=== PATIENT | male | born 1995 | race African-American/Black ===

== ENCOUNTER 2017-05-28 21:11 | Emergency (ER) | payer MEDICAID ==
[~2017-05-28] VITALS: Ht 177.8 cm; Wt 75.9 kg
[2017-05-28 21:13] VITALS: BP 103/62
[2017-05-28] MEDS ORDERED: CEFTRIAXONE 250 MG IM ONE (22:00)
[2017-05-28] MEDS ORDERED: AZITHROMYCIN 500 MG TABLET PO ONE (22:00)
[2017-05-28] MEDS ORDERED: CEFTRIAXONE 250 MG ONE (22:25)
[2017-05-28] MEDS ORDERED: AZITHROMYCIN 500 MG TABLET ONE (22:25)
[2017-05-28] MEDS ORDERED: metroNIDAZOLE 500 MG TABLET PO STA (23:05)
[2017-05-28] MEDS ORDERED: metroNIDAZOLE 500 MG TABLET ONE (23:51)
== END 2017-05-28 23:58 | disposition home or self-care (01) ==
LOC: ED 23:32
DX: Z20.2 Contact with and (suspected) exposure to infections with a predominantly sexual mode of transmission (principal); A74.9 Chlamydial infection, unspecified; F17.210 Nicotine dependence, cigarettes, uncomplicated
CPT/HCPCS: 81003; 87491; 87591; 96372; 99284; J0696

== ENCOUNTER 2017-12-05 15:36 | Emergency (ER) | payer MEDICAID ==
[~2017-12-05] VITALS: Ht 180.3 cm; Wt 71.5 kg
[2017-12-05 15:43] VITALS: BP 115/72
[2017-12-05] MEDS ORDERED: LIDOCAINE 1%, 20ML INFIL ONE (16:00)
[2017-12-05] MEDS ORDERED: LIDOCAINE 1%, 10ML ONE (16:01)
== END 2017-12-05 16:33 | disposition home or self-care (01) ==
LOC: ED 16:00
DX: L03.114 Cellulitis of left upper limb (principal); L02.414 Cutaneous abscess of left upper limb
CPT/HCPCS: 10060; 99283; J3490

== ENCOUNTER 2017-12-18 00:28 | Emergency (ER) | payer MEDICAID ==
[~2017-12-18] VITALS: Ht 180.3 cm; Wt 69.1 kg
[2017-12-18 00:29] VITALS: BP 120/75
[2017-12-18] MEDS ORDERED: LIDOCAINE 1%, 20ML ONE (00:51)
[2017-12-18] MEDS ORDERED: LIDOCAINE 1%, 20ML SQ ONE (01:00)
== END 2017-12-18 01:32 | disposition home or self-care (01) ==
LOC: ED 01:09
DX: L02.414 Cutaneous abscess of left upper limb (principal)
CPT/HCPCS: 10060